=== PATIENT | male | born 1970 | race Two or more races ===

== ENCOUNTER 2022-03-29 17:07 | Emergency (ER) | payer OTHER ==
[~2022-03-29] VITALS: Ht 165.1 cm; Wt 81.7 kg
[2022-03-29 17:35] VITALS: BP 132/84
[2022-03-29] MEDS ORDERED: NAPR-514 PO (18:02)
[2022-03-29] MEDS ORDERED: METH4TAB2 PO (18:02)
--- NOTE | 2022-03-29 18:03 | PHYS DOC ---
Past Medical History Past Surgical History: No Surgical History General Adult EDM: Chief Complaint: LOWER BACK PAIN OR INJURY HPI: HPI: Patient is a 51 year old male with no significant medical history presenting to the ED today complaining of 7 out of 10 left knee pain, symptoms began a week ago, patient states he was playing soccer a week ago, his left foot dug into the ground and he heard a pop sound from the knee and left dorsal thigh. Patient denies falling, he states is currently using [id number] pain strips and has a knee brace. Describes the pain as sharp and intermittent. States the pain strips and immobilizer help with the pain. interpreted for [place] Review of Systems: Review of Systems: Constitutional: Denies fever or chills. [] Musculoskeletal: Reports left knee pain Integument: Denies rash. [] Neurologic: Denies headache, focal weakness or sensory changes. [] Psychiatric: Denies depression or anxiety. [] Heart Score: C/O Chest Pain: N/A Risk Factors: Risk Factors: DM, Current or recent (<one month) smoker, HTN, HLP, family history of CAD, obesity. Risk Scores: Score 0 - 3: 2.5% MACE over next 6 weeks - Discharge Home Score 4 - 6: 20.3% MACE over next 6 weeks - Admit for Clinical Observation Score 7 - 10: 72.7% MACE over next 6 weeks - Early Invasive Strategies Allergies: Allergies: Allergies Coded Allergies Type Severity Reaction Last Updated Verified No Known Drug Allergies 03/29/22 No Physical Exam: PE: Constitutional: Well developed, well nourished, no acute distress, non-toxic appearance. [] Skin: Warm, dry, no erythema, no rash. [] Back: No tenderness, no CVA tenderness. [] Extremities: Left upper extremity with no obvious deformity, left knee with no obvious redness, warmth, no tenderness on exam, full range of motion to the left knee, negative Preet sign, negative Alexandrea sign, negative anterior posterior drawer sign. +2 left pedal pulse. Cap refill less than 2 seconds the left lower extremity Neurologic: Alert and oriented X 3, normal motor function, normal sensory function, no focal deficits noted. [] Psychologic: Affect normal, judgement normal, mood normal. [] Current Patient Data: Vital Signs: Vital Signs Date Time Temp Pulse Resp B/P (MAP) Pulse Ox O2 Delivery O2 Flow Rate FiO2 03/29/22 17:35 97.6 79 20 132/84 (100) 95 Room Air 97.6 EKG: EKG: [] Radiology/Procedures: Radiology/Procedures: [] Course & Med Decision Making: Course & Med Decision Making Pertinent Labs and Imaging studies reviewed. (See chart for details) This a 51-year-old male patient presented to the ED today with left knee pain that began a week ago while playing soccer. Patient states he had a pop sound from the knee. He has been able to ambulate since then with no difficulties. He has a knee brace which he states has been relieving the pain. We talked about x-rays. wanted patient to be given direction on who to follow-up with to get further imaging like MRI. Provided them orthopedic doctor. Recommended he continues to wear the knee brace as tolerated and needed Dragon Disclaimer: Dragon Disclaimer: This electronic medical record was generated, in whole or in part, using a voice recognition dictation system. Departure Departure Impression: Primary Impression: Left knee sprain Qualified Codes: S83.92XA - Sprain of unspecified site of left knee, initial encounter Disposition: HOME / SELF CARE / HOMELESS Condition: STABLE Referrals: CARLITOS CURRY MD follow up in one week Patient Instructions: Knee Sprain Additional Instructions: You were evaluated in the emergency room for left knee pain, continue wearing the brace you have as tolerated and needed. Please contact the provided orthopedic doctor on Thursday and set up a follow-up appointment in the clinic. Scripts Methylprednisolone (MEDROL) 4 Mg Tab.ds.pk 1 PKG PO UD, #1 PKG Prov: DYANA RASHID REEL WORKER 03/29/22 Naproxen (NAPROXEN) 500 Mg Tablet 1 TAB PO BID for pain, #14 TAB 0 Refills Prov: DYANA RASHID REEL WORKER 03/29/22 DYANA RASHID REEL WORKER Mar 29, 2022 18:03
== END 2022-03-29 18:30 | disposition home or self-care (01) ==
LOC: ER 17:07
DX: S83.92XA Sprain of unspecified site of left knee, initial encounter (principal); X50.9XXA Other and unspecified overexertion or strenuous movements or postures, initial encounter; Y93.66 Activity, soccer; Y92.89 Other specified places as the place of occurrence of the external cause; Y99.8 Other external cause status
CPT/HCPCS: 99283